=== PATIENT | male | born 1970 | race Caucasian/White ===

== ENCOUNTER → 2021-09-11 10:16 | Outpatient (BNVA) | payer MEDICARE, MEDICAID, SELFPAY | PROVIDERS: Family Provider Family Medicine; PCP Family Medicine; Referring Provider Nurse Practitioner; Visit Provider Orthopaedic Surgery | DX: M54.2 Cervicalgia (principal); Z46.89 Encounter for fitting and adjustment of other specified devices | CPT/HCPCS: 72050; 97760; L0174 ==

== ENCOUNTER 2021-09-11 11:57 | Outpatient (CLI) | payer MEDICARE, MEDICAID, SELFPAY | END 2021-09-11 11:58 | disposition home or self-care (01) | LOC: SPT 11:58 | PROVIDERS: Family Provider Family Medicine; PCP Family Medicine; Visit Provider Orthopaedic Surgery | DX: Z46.89 Encounter for fitting and adjustment of other specified devices (principal); M54.2 Cervicalgia | CPT/HCPCS: 97760; L0174 ==

== ENCOUNTER → 2021-09-25 09:38 | Outpatient (BNVA) | payer MEDICARE, MEDICAID, SELFPAY | PROVIDERS: Family Provider Family Medicine; PCP Family Medicine; Referring Provider Orthopaedic Surgery; Visit Provider Anesthesiology Pain Medicine | DX: G89.29 Other chronic pain (principal); M54.2 Cervicalgia | CPT/HCPCS: 99203; 99204 ==